=== PATIENT | male | born 1980 | race Caucasian/White ===

== ENCOUNTER 2021-10-19 07:55 | Emergency (ER) | payer BC ==
[~2021-10-19] VITALS: Ht 182.9 cm; Wt 127.0 kg
[2021-10-19 08:02] VITALS: BP 146/96
[2021-10-19] MEDS ORDERED: LIDOCAINE 2% 20 ML VIAL. IJ ONE (08:15)
--- NOTE | 2021-10-19 08:22 | PHYS DOC ---
Past History Past Surgical History: No Surgical History Adult General Chief Complaint Chief Complaint: TOE PROBLEM HPI HPI Patient is a 41 year old male who presents with complaint of toe injury. The patient states that he accidentally caught his right small toe on a piece of furniture at home when walking past. States that he felt a pop in the right small toe and notes that it is pointing laterally at this time. Notes severe pain with attempted movement. Denies any other injuries. Patient is concerned about a fracture to the toe and thus came to the emergency department for further evaluation. Review of Systems Review of Systems Constitutional: Denies fever or chills [] Musculoskeletal: Denies back pain or joint pain [] Integument: Denies rash or skin lesions [] Neurologic: Denies headache, focal weakness or sensory changes [] All other systems were reviewed and found to be within normal limits, except as documented in this note. Current Medications Current Medications Current Medications Medications (Trade) Dose Ordered Sig/Marleen Start Time Stop Time Status Last Admin Dose Admin Lidocaine HCl (Lidocaine 2%) 10 ml 1X ONCE 10/19/21 08:15 10/19/21 08:16 10/19/21 08:15 10 ML Allergies Allergies Allergies Coded Allergies Type Severity Reaction Last Updated Verified meperidine Allergy Unknown 10/19/21 Yes Physical Exam Physical Exam Constitutional: Well developed, well nourished, no acute distress, non-toxic appearance. [] Skin: Warm, dry, no erythema, no rash. [] Extremities: Right small toe out of alignment projecting laterally, swelling and tenderness to palpation at base of right small toe, foot and ankle exam otherwise normal.. [] Neurologic: Alert and oriented X 3, normal motor function, normal sensory function, no focal deficits noted. [] Current Patient Data Vital Signs Vital Signs Date Time Temp Pulse Resp B/P (MAP) Pulse Ox O2 Delivery O2 Flow Rate FiO2 10/19/21 08:02 98.1 104 16 146/96 (113) 96 Room Air Lab Results Not performed EKG EKG Not performed [] Radiology/Procedures Radiology/Procedures 3 view right foot x-ray interpreted by me: Right fifth midshaft proximal phalanx fracture with lateral displacement Impressions: Indication: Right small toe fracture/dislocation Consent: Patient provided verbal consent Procedure: The pre-reduction exam showed normal capillary refill and normal sensation in the right fifth toe. The patient was placed in supine position. Anesthesia/pain control was achieved with digital block of the right fifth toe with lidocaine 2% without epinephrine. Reduction of the right fifth toe was performed by direct traction. Post reduction films show residual slight lateral displacement. A post-reduction exam revealed normal capillary refill in the right fifth toe. The affected area was immobilized with jason taping to the fourth toe. The fourth toe was also jason taped to the third toe to try to help improve alignment. The patient tolerated the procedure without difficulty. Complications: None [] Heart Score C/O Chest Pain: No Risk Factors: Risk Factors: DM, Current or recent (<one month) smoker, HTN, HLP, family history of CAD, obesity. Risk Scores: Risk Factors: DM, Current or recent (<one month) smoker, HTN, HLP, family history of CAD, obesity. Course & Med Decision Making Course & Med Decision Making Pertinent Labs and Imaging studies reviewed. (See chart for details) Toe fracture reduced in the emergency department. Patient referred to podiatry for follow-up in the next 3 to 5 days for reevaluation. Given orthopedic shoe in the emergency department and provided with prescription for [place] outpatient pain control. Recommend return to the emergency department for any worsening symptoms. Patient voiced understanding and in agreement with treatment plan. [] Dragon Disclaimer Dragon Disclaimer This electronic medical record was generated, in whole or in part, using a voice recognition dictation system. Departure Departure: Impression: Primary Impression: Toe fracture, right Disposition: HOME / SELF CARE / HOMELESS Condition: IMPROVED Referrals: KAYLYNN JEEWLL MD (PCP) [facility] SORENSON DPJo Ann Patient Instructions: Toe Fracture Additional Instructions: Call the office of Dr. Sorenson of podiatry and schedule an appointment in the next 3 to 5 days for reevaluation. Return to the emergency department for any worsening symptoms. Scripts Hydrocodone/Acetaminophen (Hydrocodone-Acetamin 5-325 mg) 1 Each Tablet 1 EACH PO Q4-6HRS PRN for PAIN, #18 TAB Prov: JEANNE MERIDA MD 10/19/21 Problem Qualifiers Primary Impression: Toe fracture, right Encounter type: initial encounter Toe: lesser toe Fracture type: closed Phalanx: proximal Fracture alignment: displaced Qualified Codes: S92.511A - Displaced fracture of proximal phalanx of right lesser toe(s), initial encounter for closed fracture JEANNE MERIDA MD October 19, 2021 08:22
[2021-10-19] MEDS ORDERED: HYDR-2759 PO (08:45)
--- NOTE | 2021-10-19 08:49 | RAD ---
Exam: XR FOOT_RIGHT 3 VIEWS History: Right small toe injury with deformity Comparison: None. Findings: Osseous mineralization is normal. There is an oblique fracture of the proximal phalanx right small to e mid diaphysis is not significantly 2 mm displacement and apex medial angulation. No significant deg enerative changes. Soft tissue swelling around the small toe. Impression: 1. Mildly displaced and angulated oblique fracture mid diaphysis proximal phalanx right small toe. Electronically signed by: Lauri Felipe MD (10/19/2021 8:47 AM) [id number]
== END 2021-10-19 09:00 | disposition home or self-care (01) ==
LOC: ER 07:55
DX: S92.514A Nondisplaced fracture of proximal phalanx of right lesser toe(s), initial encounter for closed fracture (principal); W22.8XXA Striking against or struck by other objects, initial encounter; Y93.89 Activity, other specified; Y92.89 Other specified places as the place of occurrence of the external cause; Y99.8 Other external cause status
CPT/HCPCS: 28515; 73630; 99284; J2001